=== PATIENT | female | born 1985 | race Caucasian/White ===

== ENCOUNTER → 2017-08-11 | Outpatient (CLI) | payer OTHER ==
[~2017-08-11] MED LIST: ACYC200; LO LOESTRIN FE1 EACH; NAPR500 PO; NAPR550 PO; RXNAPNA550 PO
== END | disposition home or self-care (01) ==
LOC: LAB SHORT 11:12 → PLD 11:12
DX: D22.5 Melanocytic nevi of trunk (principal)
CPT/HCPCS: 88305

== ENCOUNTER → 2018-03-16 | Outpatient (CLI) | payer OTHER | END | disposition home or self-care (01) | LOC: PLD 13:51 → LAB SHORT 13:51 | DX: D17.22 Benign lipomatous neoplasm of skin and subcutaneous tissue of left arm (principal) | CPT/HCPCS: 88304 ==

== ENCOUNTER → 2019-01-17 | Outpatient (CLI) | payer OTHER ==
[2019-01-19 01:06] LABS: CHLAMYDIA TRACHOMATIS, NAA Negative (Negative); NEISSERIA GONORRHOEAE, NAA Negative (Negative)
== END | disposition home or self-care (01) ==
LOC: LAB SHORT 13:09 → LAB 13:09
PROVIDERS: Advanced Practice Midwife
DX: Z11.3 Encounter for screening for infections with a predominantly sexual mode of transmission (principal)
CPT/HCPCS: 87491; 87591

== ENCOUNTER → 2019-02-16 | Outpatient (CLI) | payer OTHER ==
[2019-02-18 21:06] LABS: AFP MOM 1.55 (.); DIA MOM 1.42 (.); DIA VALUE 240.42 pg/mL (.); DSR (BY AGE) 1 IN 405 (.); DSR (SECOND TRIMESTER) 1 IN 7418 (.); GESTAT. AGE BASED ON EDD (.); HCG MOM 1.91 (.); HCG VALUE 79885 mIU/mL (.); MATERNAL AGE AT EDD 33.5 yr (.); OSBR RISK 1 IN 2393 (.); RACE Caucasian (.); RESULTS Report (.); T18 RISK Not increased (.); TEST RESULTS: *Screen Negative* (.); UE3 MOM 1.42 (.); UE3 VALUE 1.17 ng/mL (.); WEIGHT 160 lbs (.)
== END | disposition home or self-care (01) ==
LOC: LAB SHORT 11:45 → LAB 11:45
PROVIDERS: Obstetrics & Gynecology
DX: Z34.82 Encounter for supervision of other normal pregnancy, second trimester (principal); Z3A.16 16 weeks gestation of pregnancy
CPT/HCPCS: 82105; 82677; 84702; 86336

== ENCOUNTER → 2019-06-06 | Outpatient (CLI) | payer OTHER | END | disposition home or self-care (01) | LOC: LAB SHORT 13:32 → LAB 13:32 | DX: R30.0 Dysuria (principal) | CPT/HCPCS: 87086 ==

== ENCOUNTER 2021-01-17 20:44 | Observation (INO) | payer OTHER ==
[~2021-01-17] VITALS: Ht 165.1 cm; Wt 61.2 kg
[~2021-01-17 20:44] MED LIST changes: +ACET325 PO; +DOCU100; +FAMO40 PO; +IBUP800 PO; +OXYC5 PO; +Prenatabs Rx T1 EACH PO; +SLOW FE142 MG PO
[2021-01-17 21:44] LABS: BASOPHILS ABSOLUTE AUTO 0.08 K/mm3 (0.00-0.23); BASOPHILS PERCENT AUTO 1 % (0-2); EOSINOPHILS ABSOLUTE AUTO 0.11 K/mm3 (0.00-0.68); EOSINOPHILS PERCENT AUTO 1 % (0-6); Hematocrit 40.4 % (33.0-51.0); Hemoglobin 13.5 g/dL (11.5-16.0); IMMATURE GRAN ABSOLUTE AUTO 0.04 K/mm3 (0.00-0.10); IMMATURE GRAN PERCENT AUTO 0 % (0-1); LYMPHOCYTES ABSOLUTE AUTO 2.11 K/mm3 (0.84-5.20); LYMPHOCYTES PERCENT AUTO 15 % (21-46); MONOCYTES ABSOLUTE AUTO 0.85 K/mm3 (0.16-1.47); MONOCYTES PERCENT AUTO 6 % (4-13); Mean Corpuscular HGB 28.4 pg (26.0-34.0); Mean Corpuscular HGB Conc 33.4 g/dL (31.5-36.5); Mean Corpuscular Volume 85 fL (80-100); Mean Platelet Volume 10.1 fL (9.1-12.4); NEUTROPHILS ABSOLUTE AUTO 10.49 K/mm3 (1.96-9.15); NEUTROPHILS PERCENT AUTO 77 % (41-73); Platelet Count 264 K/mm3 (150-400); RDW Coefficient Variation 13.1 % (11.7-14.2); RDW Standard Deviation 40.6 fL (35.1-46.3); Red Blood Cell Count 4.75 M/mm3 (3.80-5.20); White Blood Cell Count 13.68 K/mm3 (4.00-11.30)
[2021-01-17 22:01] LABS: Alanine Aminotransfer (ALT/SGP 19 U/L (12-78); Albumin, Blood 3.8 g/dL (3.4-5.0); Albumin/Globulin Ratio 1.1 (0.8-1.8); Alk Phos 40 U/L (50-136); Anion Gap 7 mmol/L (6-16); Aspartate Aminotrans (AST/SGOT 10 U/L (12-37); Bilirubin, Total 0.2 mg/dL (0.1-1.0); Blood Urea Nitrogen 12 mg/dL (8-24); Bun/Creatinine Ratio 16.5 (12.0-20.0); CO2, Blood 22 mmol/L (21-32); Calcium, Blood 8.6 mg/dL (8.5-10.1); Chloride, Blood 111 mmol/L (98-108); Creatinine, Blood 0.73 mg/dL (0.40-1.00); Globulin, Blood 3.6 g/dL (2.2-4.0); Glomerular Filtration Rate >60 (60-); Glucose, Blood 88 mg/dL (70-99); Sodium, Blood 140 mmol/L (136-145); Total Protein, Blood 7.4 g/dL (6.4-8.2)
[2021-01-18 02:14] LABS: SARS-Cov-2 (COVID-19) PCR, MMC NEGATIVE (NEGATIVE)
[2021-01-18 03:40] LABS: Source, Urine Clean Catch
[2021-01-18 03:46] LABS: Bilirubin, Urine Neg (Neg); Blood, Urine Neg (Neg); Glucose Qualitative, Urine Neg (Neg); Ketones, Urine Neg (Neg); Leukocyte Esterase, Urine Neg (Neg); Nitrite, Urine Neg (Neg); Protein, Urine 1+ (Neg); Urobilinogen, Urine NORM (Normal)
[2021-01-18 03:52] LABS: Appearance, Urine Clear (Clear); Color, Urine Yellow (P-Yellow)
--- NOTE | 2021-01-18 05:54 | NUR ---
PT A/OX4. VSS ON RA. DENIES N/V. FENTANYL GIVEN 1X FOR PAIN, OTHERWISE PT DENIED PAIN ALL NIGHT. 1L OF FLUIDS GIVEN PER ORDER. NPO. NEGATIVE COVID TEST. INDEPENDENT IN ROOM. USING CALL LIGHT TO MAKE NEEDS KNOWN.
--- NOTE | 2021-01-18 09:16 | NUR ---
PATIENT LEFT FOR OR AROUND 0830.
--- NOTE | 2021-01-18 11:10 | NUR ---
PATIENT JUST CAME BACK FROM PACU TODAY 01/18/21. POD 0 LAP APPY PATIENT IS ALERT AND ORIENTED X4. VS ARE WNL AND IS ON RA. PATIENT DENIES PAIN AT THIS TIME. THE THREE LAP SITES ON THE ABD HAVE GAUZE/TRANSPARENT TAPE AND IS C/D/I. SHE IS TOLERATING CRACKERS AND WATER. DENIES ANY NUMBNESS OR TINGLING IN EXTREMITIES. CALL LIGHT WITHIN REACH. SHE IS CURRENTLY LAYING IN BED WATCHING TV.
--- NOTE | 2021-01-18 15:35 | NUR ---
DISCHARGE NOTE: POD 0 LAP APPY PATIENT AND WERE EDUCATED ON DISCHARGE INSTRUCTIONS. BOTH OF THEM VERBALIZED UNDERSTANDING OF INSTRUCTIONS. HARD PERSCRIPTION IS IN HER FOLDER. IV WAS TAKEN OUT AND WAS WNL. SHE IS ALERT AND ORIENTED X4. VS ARE WNL AND IS ON RA. PATIENT DENIES PAIN AT THIS TIME. THE 3 LAP SITES ARE C/D/I. SHE IS VOIDING AND PASSING GAS WELL TOLERATING PO INTAKE. PATIENT DENIES NUMBNESS AND TINGLING IN ALL EXTREMITIES. SHE IS DRESSED AND HAS HER ITEMS GATHERED. SHE WAS WHEELCHAIRED OUT TO HER HUSBANDS CAR TO BE TAKEN HOME.
== END 2021-01-18 15:24 | disposition home or self-care (01) ==
LOC: ER 20:44 → SURS 20:45
PROVIDERS: Physician Assistant; ADMIT Surgery
PROC: 0DTJ4ZZ Resection of Appendix, Percutaneous Endoscopic Approach (ICD-10-PCS; principal; 2021-01-18 08:45)
DX: K35.80 Unspecified acute appendicitis (principal); Z20.822 Contact with and (suspected) exposure to COVID-19
CPT/HCPCS: 36415; 74177; 80053; 81025; 83690; 85025; 88304; 96365; 96375; 96376; 99285-25; G0378; J1100; J1885; J2250; J2405; J2543; J2704; J3010; J7030; J7050; J7120; Q9967; U0004

== ENCOUNTER 2023-01-30 19:16 | Emergency (ER) | payer OTHER ==
[~2023-01-30] VITALS: Ht 165.1 cm; Wt 62.6 kg
[~2023-01-30 19:16] MED LIST changes: +EUTHYROX75 MC1 PO
[2023-01-30 19:52] VITALS: BP 112/79
[2023-01-30] MEDS ORDERED: Prozac20 MG PO (19:54)
== END 2023-01-30 20:36 | disposition home or self-care (01) ==
LOC: ER 19:16
DX: M79.662 Pain in left lower leg (principal); Z79.899 Other long term (current) drug therapy
CPT/HCPCS: 93971; 99283-25

== ENCOUNTER 2024-03-22 20:53 | Emergency (ER) | payer OTHER ==
[~2024-03-22] VITALS: Ht 165.1 cm; Wt 65.8 kg
[~2024-03-22 20:53] MED LIST changes: +Prozac20 MG PO
[2024-03-22 21:11] VITALS: BP 117/76
[2024-03-22] MEDS ORDERED: Ondansetron HCl 2 MG / ML 2ML Vial IV PRN (21:15)
[2024-03-22 21:51] LABS: BASOPHILS ABSOLUTE AUTO 0.05 K/mm3 (0.00-0.23); BASOPHILS PERCENT AUTO 0 % (0-2); EOSINOPHILS ABSOLUTE AUTO 0.02 K/mm3 (0.00-0.68); EOSINOPHILS PERCENT AUTO 0 % (0-6); Hematocrit 42.7 % (33.0-51.0); Hemoglobin 14.4 g/dL (11.5-16.0); IMMATURE GRAN ABSOLUTE AUTO 0.05 K/mm3 (0.00-0.10); IMMATURE GRAN PERCENT AUTO 0 % (0-1); LYMPHOCYTES ABSOLUTE AUTO 1.41 K/mm3 (0.84-5.20); LYMPHOCYTES PERCENT AUTO 11 % (21-46); MONOCYTES ABSOLUTE AUTO 0.55 K/mm3 (0.16-1.47); MONOCYTES PERCENT AUTO 4 % (4-13); Mean Corpuscular HGB 29.4 pg (26.0-34.0); Mean Corpuscular HGB Conc 33.7 g/dL (31.5-36.5); Mean Corpuscular Volume 87 fL (80-100); Mean Platelet Volume 9.5 fL (9.1-12.4); NEUTROPHILS PERCENT AUTO 84 % (41-73); Platelet Count 336 K/mm3 (150-400); RDW Coefficient Variation 12.9 % (11.7-14.2); RDW Standard Deviation 41.3 fL (35.1-46.3); Red Blood Cell Count 4.89 M/mm3 (3.80-5.20); White Blood Cell Count 12.98 K/mm3 (4.00-11.30)
[2024-03-22 22:05] LABS: Albumin, Blood 4.3 g/dL (3.4-5.0); Albumin/Globulin Ratio 1.1 (0.8-1.8); Bilirubin, Total 0.6 mg/dL (0.1-1.0); Bun/Creatinine Ratio 26.3 (12.0-20.0); Calcium, Blood 9.2 mg/dL (8.5-10.1); Creatinine, Blood 0.57 mg/dL (0.40-1.00); Total Protein, Blood 8.3 g/dL (6.4-8.2)
== END 2024-03-23 00:45 | disposition left against medical advice (07) ==
LOC: ER 20:53
PROVIDERS: Emergency Medicine
DX: R11.2 Nausea with vomiting, unspecified (principal); R19.7 Diarrhea, unspecified; Z53.21 Procedure and treatment not carried out due to patient leaving prior to being seen by health care provider
CPT/HCPCS: 80053; 83690; 85025; 96374; J2405

== ENCOUNTER 2024-03-25 07:22 | Emergency (ER) | payer OTHER ==
[~2024-03-25] VITALS: Ht 165.1 cm; Wt 63.5 kg
[2024-03-25 07:40] VITALS: BP 119/80
[2024-03-25] MEDS ORDERED: Ondansetron 4 MG SoluTab SL ONE (08:00)
[2024-03-25] MEDS ORDERED: Ibuprofen 600 MG Tab PO ONE (08:00)
[2024-03-25] MEDS ORDERED: Acetaminophen 500 MG Tab PO ONE (08:00)
[2024-03-25] MEDS ORDERED: OxyCODONE HCL 5 MG TAB PO ONE (10:15)
[2024-03-25 11:01] LABS: Source, Urine Clean Catch
[2024-03-25 11:14] LABS: Appearance, Urine Clear (Clear); Bilirubin, Urine Neg (Neg); Blood, Urine Neg (Neg); Color, Urine Yellow (P-Yellow); Glucose Qualitative, Urine Neg (Neg); Ketones, Urine 3+ (Neg); Leukocyte Esterase, Urine Neg (Neg); Nitrite, Urine Neg (Neg); Protein, Urine 1+ (Neg); Urobilinogen, Urine 1+ (Normal)
[2024-03-25] MEDS ORDERED: OXYC5 PO (11:51)
== END 2024-03-25 12:00 | disposition home or self-care (01) ==
LOC: ER 07:22
PROVIDERS: Emergency Medicine
DX: M25.511 Pain in right shoulder (principal); Z79.899 Other long term (current) drug therapy; Z88.6 Allergy status to analgesic agent
CPT/HCPCS: 71045; 73030; 76705; 81025; 93005; 93010; 99284-25; A9270

== ENCOUNTER 2024-04-07 10:24 | Emergency (ER) | payer OTHER ==
[~2024-04-07] VITALS: Ht 165.1 cm; Wt 61.2 kg
[2024-04-07] MEDS ORDERED: Methyl Salicylate/Menth/Camph 57 GM TUBE TOP ONE (11:30)
[2024-04-07] MEDS ORDERED: Morphine Sulfate IR 15 MG Tab PO ONE (11:30)
[2024-04-07] MEDS ORDERED: Methocarbamol 500 MG Tab PO ONE (11:30)
[2024-04-07] MEDS ORDERED: Ondansetron 4 MG SoluTab MM ONE (11:30)
[2024-04-07] MEDS ORDERED: Ibuprofen 600 MG Tab PO ONE (11:30)
[2024-04-07 12:00] VITALS: BP 120/86
[2024-04-07] MEDS ORDERED: FAMO20 PO (13:21)
[2024-04-07] MEDS ORDERED: Robaxin750 MG PO (13:21)
[2024-04-07] MEDS ORDERED: Morphine Sulfat15 MG PO (13:21)
[2024-04-07] MEDS ORDERED: ONDA4ODT MM (13:21)
== END 2024-04-07 15:04 | disposition home or self-care (01) ==
LOC: ER 10:24
DX: M54.12 Radiculopathy, cervical region (principal); R20.0 Anesthesia of skin; R53.1 Weakness; M25.511 Pain in right shoulder; Z79.899 Other long term (current) drug therapy; Z88.5 Allergy status to narcotic agent
CPT/HCPCS: 72125; 99283-25; A9270

== ENCOUNTER 2025-03-05 15:56 | Emergency (ER) | payer OTHER ==
[~2025-03-05] VITALS: Ht 165.1 cm; Wt 59.0 kg
[~2025-03-05 15:56] MED LIST changes: +FAMO20 PO; +Morphine Sulfat15 MG PO; +ONDA4ODT MM; +Robaxin750 MG PO
[2025-03-05 16:49] LABS: BASOPHILS ABSOLUTE AUTO 0.08 K/mm3 (0.00-0.23); BASOPHILS PERCENT AUTO 1 % (0-2); EOSINOPHILS ABSOLUTE AUTO 0.10 K/mm3 (0.00-0.68); EOSINOPHILS PERCENT AUTO 2 % (0-6); Hematocrit 37.5 % (33.0-51.0); Hemoglobin 12.7 g/dL (11.5-16.0); IMMATURE GRAN ABSOLUTE AUTO 0.02 K/mm3 (0.00-0.10); IMMATURE GRAN PERCENT AUTO 0 % (0-1); LYMPHOCYTES ABSOLUTE AUTO 2.10 K/mm3 (0.84-5.20); LYMPHOCYTES PERCENT AUTO 32 % (21-46); MONOCYTES ABSOLUTE AUTO 0.50 K/mm3 (0.16-1.47); MONOCYTES PERCENT AUTO 8 % (4-13); Mean Corpuscular HGB Conc 33.9 g/dL (31.5-36.5); Mean Corpuscular Volume 86 fL (80-100); NEUTROPHILS ABSOLUTE AUTO 3.80 K/mm3 (1.96-9.15); NEUTROPHILS PERCENT AUTO 58 % (41-73); NRBC ABSOLUTE 0.00 K/mm3 (0.00-0.02); NRBC Auto 0.0 /100 WBC (0.0-0.2); Platelet Count 256 K/mm3 (150-400); RDW Coefficient Variation 12.9 % (11.7-14.2); RDW Standard Deviation 40.4 fL (35.1-46.3)
[2025-03-05 16:59] LABS: Source, Urine Clean Catch
[2025-03-05 17:03] LABS: Alanine Aminotransfer (ALT/SGP 16.0 U/L (12-78); Albumin, Blood 4.0 g/dL (3.4-5.0); Albumin/Globulin Ratio 1.3 (0.8-1.8); Anion Gap 3.0 mmol/L (3-11); Aspartate Aminotrans (AST/SGOT 8.0 U/L (12-37); Bilirubin, Total 0.3 mg/dL (0.1-1.0); Blood Urea Nitrogen 7.0 mg/dL (8-24); CO2, Blood 28.0 mmol/L (21-32); Calcium, Blood 8.8 mg/dL (8.5-10.1); Chloride, Blood 110.0 mmol/L (98-108); Creatinine, Blood 0.62 mg/dL (0.40-1.00); Globulin, Blood 3.1 g/dL (2.2-4.0); Glucose, Blood 103.0 mg/dL (70-99); Potassium, Blood 3.2 mmol/L (3.5-5.5); Sodium, Blood 138.0 mmol/L (136-145); Total Protein, Blood 7.1 g/dL (6.4-8.2)
[2025-03-05 17:05] LABS: Bilirubin, Urine Neg (Neg); Glucose Qualitative, Urine Neg (Neg); Ketones, Urine Neg (Neg); Leukocyte Esterase, Urine Neg (Neg); Protein, Urine Neg (Neg); Specific Gravity, Urine 1.010 (1.003-1.022); Urobilinogen, Urine NORM (Normal)
[2025-03-05 17:18] LABS: Color, Urine Pale Yellow (P-Yellow)
[2025-03-05 17:30] LABS: Influenza A, PCR NEGATIVE (NEGATIVE); Influenza B, PCR NEGATIVE (NEGATIVE); Resp Syncytial Virus, PCR NEGATIVE (NEGATIVE); SARS-Cov-2 (COVID-19) PCR, MMC NEGATIVE (NEGATIVE)
[2025-03-05] MEDS ORDERED: NS 1,000 ML IV SCH (17:35)
[2025-03-05] MEDS ORDERED: Ondansetron HCl 2 MG / ML 2ML Vial IV ONE (17:35)
[2025-03-05] MEDS ORDERED: DICY20 PO (17:40)
[2025-03-05] MEDS ORDERED: ONDA4 PO (17:40)
[2025-03-05] MEDS ORDERED: AMOCLA875 PO (17:40)
[2025-03-05 18:53] VITALS: BP 104/78
== END 2025-03-05 18:57 | disposition home or self-care (01) ==
LOC: ER 15:56
PROVIDERS: Physician Assistant
DX: A09 Infectious gastroenteritis and colitis, unspecified (principal); K62.5 Hemorrhage of anus and rectum; E87.6 Hypokalemia; Z88.6 Allergy status to analgesic agent; Z79.899 Other long term (current) drug therapy
CPT/HCPCS: 74177; 80053; 84703; 85025; 86850; 86900; 86901; 87086; 87637; 93005; 93010; 96361; 96374-59; 96375; 99285-25; A9270; J2405; J7030; Q9967

== ENCOUNTER → 2025-04-05 | Outpatient (CLI) | payer OTHER ==
[~2025-04-05] MED LIST changes: +AMOCLA875 PO; +DICY20 PO; +ONDA4 PO
[2025-04-05 19:09] LABS: Campylobacter Sp Not Detected (NOT DETECT); E. Coli O157 Not Detected (NOT DETECT); Enteroaggregative E. coli-EAEC Not Detected (NOT DETECT); Enteropathogenic E. coli-EPEC Not Detected (NOT DETECT); Enterotoxigenic E. coli-ETEC Not Detected (NOT DETECT); Salmonella Sp Not Detected (NOT DETECT); Shiga Toxin-prod E. coli-STEC Not Detected (NOT DETECT); Shigella/Enteroin E. coli-EIEC Not Detected (NOT DETECT); Vibrio Sp Not Detected (NOT DETECT)
[2025-04-08 17:11] LABS: CALPROTECTIN,FECAL 49 ug/g (<=49)
== END ==
LOC: LAB 15:00 → LAB SHORT 15:00
PROVIDERS: Nurse Practitioner Family
DX: R19.4 Change in bowel habit (principal)
CPT/HCPCS: 83993; 87507